=== PATIENT | male | born 1965 ===

== ENCOUNTER 2018-02-28 14:59 | Emergency (ER) | payer OTHER ==
[2018-02-28 15:46] LABS: ABSOLUTE BASOPHIL COUNT 0 /CUMM (0.0-0.2); ABSOLUTE EOSINOPHIL COUNT 0 /CUMM (0.0-0.7); ABSOLUTE GRANULOCYTE CT 3.8 /CUMM (1.4-6.5); ABSOLUTE LYMPH COUNT 1.6 /CUMM (1.2-3.4); ABSOLUTE MONOCYTE COUNT 0.8 /CUMM (0.10-0.60); BASOPHIL % 0.2 % (0.0-2.0); EOSINOPHIL % 0.4 % (0-5); GRANULOCYTE % 60.4 % (42.2-75.2); HEMATOCRIT 36.9 % (42-52); MEAN CORPUSCULAR HGB 30.8 PG (27.0-31.0); MEAN CORPUSCULAR HGB CONC 34.5 G/DL (33.0-37.0); MEAN CORPUSCULAR VOLUME 89.2 FL (80.0-94.0); MEAN PLATELET VOLUME 8.8 FL (7.4-10.4); PLATELET COUNT 164 /CUMM (130-400); RBC DISTRIBUTION WIDTH 12.7 % (11.5-14.5); RED BLOOD CELL CT 4.13 /CUMM (4.70-6.10); WHITE BLOOD CELL COUNT 6.3 /CUMM (4.8-10.8)
--- NOTE | 2018-02-28 15:48 | RADIOLOGY REPORT ---
EXAMINATION: XR CHEST CLINICAL INFORMATION: Shortness of breath. Chest pain. COMPARISON: None TECHNIQUE: 2 views of the chest were obtained. FINDINGS: Linear pleural parenchymal opacities are noted at both lung bases, may represent hypoventilatory, atelectatic changes, pleural parenchymal scar and less likely to be infiltrate. The remainder of the lung samuels are clear. The cardiomediastinal silhouette is within normal limit. There is no pleural effusion or pneumothorax present. No focal osseous abnormalities. The visualized upper abdomen is unremarkable. IMPRESSION: Linear pleural parenchymal opacities are noted at both lung bases, may represent hypoventilatory, atelectatic changes versus pleural parenchymal scar and less likely to be infiltrate.
[2018-02-28] MEDS ORDERED: ATENOLOL50 M1 PO (17:52)
[2018-02-28] MEDS ORDERED: AMLODIPINE BESYL5 M1 PO (17:52)
[2018-02-28] MEDS ORDERED: NEXIUM20 M1 PO (17:52)
[2018-02-28] MEDS ORDERED: BARACLUDE1 MG PO (17:53)
[2018-02-28] MEDS ORDERED: VITAMIN B-125000 MCG PO (17:53)
--- NOTE | 2018-02-28 17:54 | ED GENERAL ADULT ---
History of Present Illness General Chief Complaint: Shoulder Injury Stated Complaint: LEFT SHOULDER PAIN Source: patient, family Exam Limitations: no limitations Vital Signs & Intake/Output Vital Signs & Intake/Output Vital Signs Date Time Temp Pulse Resp B/P B/P Pulse O2 O2 Flow FiO2 Mean Ox Delivery Rate 02/28 1507 99.8 78 16 128/85 98 Room Air Room Air Allergies Coded Allergies: No Known Allergies (02/28/18) Reconcile Medications Amlodipine Besylate 5 MG TABLET 1 TAB PO DAILY BP (Reported) Atenolol 50 MG TABLET 1 TAB PO DAILY BP (Reported) Cyanocobalamin (Vitamin B-12) (Vitamin B-12) 5,000 MCG TAB.SUBL 1 TAB PO DAILY SUPPLEMENT (Reported) Entecavir (Baraclude) 1 MG TABLET 1 TAB PO DAILY HEP B (Reported) Esomeprazole Magnesium (Nexium) 20 MG CAPSULE.DR 1 CAP PO DAILY GI (Reported) Triage Note: PT TO TRIAGE FOR LEFT SHOUDLER PAIN THAT RADIATES INTO HIS CHEST WHEN HE DEEPLY BREATHS. PT STATES HE HAS HAD FEVERS WITH SOME SOB. DENIES COUGH. DENIES N/D/D. Triage Nurses Notes Reviewed? yes HPI: This is a 52-year-old male with history of hypertension and chronic kidney disease who presents the emergency department with 3 days of left shoulder/left lateral upper back pain. Patient states that he has had no inciting trauma, new activities, travel, illness. He does report a nonproductive cough for the past few days with some intermittent subjective fevers. He reports good p.o. intake, has continued to work. He sought care with his primary doctor, was told to be evaluated in the emergency department. Prior to my evaluation, patient undergoes metabolic panel which reveals what appears to be chronic kidney disease (last creatinine was in fact higher), in addition to mild anemia. Chest x-ray is equivocal but could be consistent with a pneumonia. His troponin was negative and his EKG was nonischemic. Patient arrives in his who is a nurse. He denies any chest pain, shortness of breath, nausea, vomiting, diaphoresis, exertional component. His attempted to ease his pain with hot packs last night which helped mildly but the discomfort has continued. She notes that he has had full range of motion and no inciting injury. Past History Travel History Traveled to [place] past 21 day No Medical History Any Pertinent Medical History? see below for history Neurological: NONE EENT: NONE Cardiovascular: hypertension Respiratory: NONE Gastrointestinal: NONE Hepatic: NONE Renal: chronic kidney disease Musculoskeletal: NONE Psychiatric: NONE Endocrine: NONE Blood Disorders: NONE Cancer(s): NONE MEATMAN/Reproductive: NONE Surgical History Surgical History: none Psychosocial History What is your primary language Welsh Tobacco Use: Never used ETOH Use: denies use Illicit Drug Use: denies illicit drug use Family History Hx Contributory? No Review of Systems Review of Systems Constitutional: Reports: see HPI, fever. EENTM: Reports: no symptoms. Respiratory: Reports: cough. Denies: short of breath, sputum production, wheezing. Cardiovascular: Denies: chest pain, edema, orthopena, palpitations, peripheral edema, syncope. GI: Reports: no symptoms. Genitourinary: Reports: no symptoms. Musculoskeletal: Reports: no symptoms. Skin: Reports: no symptoms. Neurological/Psychological: Reports: no symptoms. Physical Exam Physical Exam General Appearance: no apparent distress, alert, awake, comfortable, thin Head: atraumatic, normal appearance Eyes: Bilateral: normal appearance. Ears, Nose, Throat: normal pharynx, normal ENT inspection Neck: normal inspection, supple Respiratory: normal breath sounds, chest non-tender, lungs clear Cardiovascular: regular rate/rhythm, normal peripheral pulses Gastrointestinal: soft, non-tender Back: normal inspection, normal range of motion Extremities: normal inspection, normal capillary refill, normal range of motion, no edema Neurologic/Psych: no motor/sensory deficits, awake, alert, oriented x 3, normal gait, normal mood/affect Skin: warm/dry Core Measures ACS in differential dx? No CVA/TIA Diagnosis: No Sepsis Present: No Sepsis Focused Exam Completed? No Progress Differential Diagnoses I considered the following diagnoses in my evaluation of the patient: Community- acquired pneumonia, pulled muscle, low suspicion for ACS in this patient given negative troponin, nonischemic EKG, lack of anginal symptoms diaphoresis nausea or chest pain, low suspicion also for acute thoracic dissection given lack of pulse or blood pressure differential and arms, lack of suggestive retrosternal chest pain or neurologic symptoms, lack of tearing quality to pain. Patient has a cough and some coarse breath sounds to the left side, most consistent with community acquired pneumonia. Plan of Care: Orders Procedure Date/time Status TROPONIN LEVEL 02/28 1506 Complete COMPREHENSIVE METABOLIC PANEL 02/28 1506 Complete CBC WITHOUT DIFFERENTIAL 02/28 150 Complete EKG 02/28 150 Active Laboratory Tests 02/28/18 1510: Anion Gap 8, Estimated GFR 37 L, BUN/Creatinine Ratio 10.5, Glucose 96, Calcium 9.1, Total Bilirubin 0.5, AST 16 L, ALT 29, Alkaline Phosphatase 53, Troponin I < 0.01, Total Protein 7.1, Albumin 3.9, Globulin 3.2, Albumin/Globulin Ratio 1.2 , CBC w Diff NO MAN DIFF REQ, RBC 4.13 L, MCV 89.2, MCH 30.8, MCHC 34.5, RDW 12.7, MPV 8.8, Gran % 60.4, Lymphocytes % 25.6, Monocytes % 13.4 H, Eosinophils % 0.4, Basophils % 0.2, Absolute Granulocytes 3.8, Absolute Lymphocytes 1.6, Absolute Monocytes 0.8 H, Absolute Eosinophils 0, Absolute Basophils 0 Patient well-appearing on reassessment, amenable to outpatient treatment for presumed community acquired pneumonia. Will start doxycycline. Patient advised to drink plenty of water, avoid direct sunlight, avoid taking the medication with calcium-containing foods. He is discharged home with his with plan to follow-up as outpatient provider. Return precautions are provided. Initial ED EKG: normal axis, normal intervals, normal p-waves, normal QRS complex, normal sinus rhythm, no ST T wave changes Departure Departure Time of Disposition: 1751 Disposition: HOME OR SELF CARE Condition: Stable Clinical Impression Primary Impression: CAP (community acquired pneumonia) Referrals: Tapan Romero MD (PCP/Family) Additional Instructions: Thank you for coming to [facility] today. Please follow-up with your primary care doctor as we discussed. Please take the doxycycline as prescribed. I recommend that you drink a full glass of water with each pill, avoid direct sunlight while taking medication, and avoid taking the medication with any calcium-containing foods such as dairy products. Please return to the emergency department immediately if you develop any worsening pain, or chest pain, shortness of breath, nausea, vomiting, sweats, or lightheadedness or confusion. Departure Forms: Customer Survey General Discharge Information Prescriptions: Current Visit Scripts Doxycycline Hyclate 1 CAP PO BID #[id number] CAP Critical Care Note Critical Care Note Critical Care Time: non-applicable
[2018-02-28] MEDS ORDERED: DOXYCYCLINE HY100 M2 PO (17:56)
[2018-02-28 18:14] VITALS: BP 144/90
== END 2018-02-28 18:16 ==
LOC: ERH 14:59
PROVIDERS: Physician Assistant Medical
DX: J18.9 Pneumonia, unspecified organism (principal)
CPT/HCPCS: 71046; 93005; 93010